=== PATIENT | female | born 1980 | race American Indian/Alaskan Native ===

== ENCOUNTER 2019-07-24 20:39 | Emergency (ER) | payer OTHER ==
[~2019-07-24] VITALS: Ht 149.9 cm; Wt 55.8 kg
[2019-07-24 22:25] VITALS: BP 168/79; TEMP 98.2
== END 2019-07-24 22:25 | disposition home or self-care (01) ==
LOC: ED 20:39
PROC: 2W3QX1Z Immobilization of Right Lower Leg using Splint (ICD-10-PCS; principal; 2019-07-24)
DX: S82.831A Other fracture of upper and lower end of right fibula, initial encounter for closed fracture (principal); W18.30XA Fall on same level, unspecified, initial encounter; X50.1XXA Overexertion from prolonged static or awkward postures, initial encounter; Y92.511 Restaurant or cafe as the place of occurrence of the external cause
CPT/HCPCS: 99283